=== PATIENT | female | born 1990 | race Caucasian/White ===

== ENCOUNTER 2018-07-26 14:06 | Emergency (ER) | payer OTHER ==
[~2018-07-26] VITALS: Ht 172.7 cm; Wt 110.2 kg
[2018-07-26 14:31] VITALS: BP 125/83
--- NOTE | 2018-07-26 14:35 | NUR ---
URINE CUP HANDED TO PT FOR SAMPLE
--- NOTE | 2018-07-26 14:47 | NUR ---
PATIENT AMBULATED TO ER BED 8
--- NOTE | 2018-07-26 14:50 | NUR ---
28Y/F C/O SUDDEN ONSET OF RLE PAIN FROM HIP DOWN X YESTERDAY, HEADACHE AND CHILLS, VERBALIZED FEELING ANXIOUS BECAUSE PAIN WILL NOT SUBSIDE, DENIES RECENT INJURY AMBULATORY WITH STEADY GAIT, +2 POPLITEAL PULSE, NO DISCOLORATION NOTED TO RIGHT SIDE OF HIP, PT IS AAOX4, VSS AT THIS TIME, BED DOWN,LOW LOCKED, BEDRAIL UP X 1, ER MD AWARE AND NOTIFIED OF PT STATUS. PMH: NONE RX: ADVIL
[2018-07-26] MEDS ORDERED: KETOROLAC 60 MG/2 ML VIAL IM ONE (16:50)
--- NOTE | 2018-07-26 16:51 | NUR ---
Patient being evaluated by physician at bedside.
--- NOTE | 2018-07-26 17:00 | NUR ---
SWAB DONE AND GIVEN TO LAB
[2018-07-26 18:41] VITALS: BP 123/81
== END 2018-07-26 18:41 | disposition home or self-care (01) ==
LOC: MED 14:06
DX: J06.9 Acute upper respiratory infection, unspecified (principal); M25.551 Pain in right hip
CPT/HCPCS: 36415; 72100; 73502; 81025; 87804; 96372; 99284; J1885